=== PATIENT | female | born 1975 | race Caucasian/White ===

== ENCOUNTER 2023-08-09 09:55 | Emergency (ER) | payer OTHER, SELFPAY ==
[2023-08-09 10:05] VITALS: BP 173/86; PULSE 83; RESP 15; TEMP 36.4; O2SAT 100; BMI 22.6
--- NOTE | 2023-08-09 10:08 | DI.RAD.S_ITS ---
PROCEDURE: XR SHOULDER RT MIN 2V INDICATIONS: shoulder pain TECHNIQUE: 3 views of the shoulder were acquired. COMPARISON: None. FINDINGS: Bones: No fractures or dislocations. No suspicious bony lesions. Visualized ribs appear intact. Soft tissues: No suspicious soft tissue calcifications. IMPRESSION: No acute osseous abnormality. If pain persists with conservative management, consider repeat x-ray in 10-14 days or cross-sectional imaging. Dictated by: Bandar Trujillo M.D. on 08/09/2023 at 10:55 Approved by: Bandar Trujillo M.D. on 08/09/2023 at 10:56
--- NOTE | 2023-08-09 11:11 | ED.EXTPRO ---
HPI - Extremity Problem General Chief complaint: Extremity Problem,Nontraumatic Stated complaint: sent from [facility] something wrong with rt arm Time Seen by Provider: 08/09/23 10:30 Source: patient Mode of arrival: Ambulatory History of Present Illness HPI Narrative: Patient here with father. Complains of right shoulder pain for the past couple of days. 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 She does carry a lot of heavy trays. However in the last couple of days she also moved a very heavy massage table in and out of the car. This has made her shoulder pain worse. No prior history of shoulder injury or surgery. No numbness or tingling. Increased pain with any movement of the right shoulder. No recent illness or fever. She does not want any narcotic medication Related Data Home Medications Medication Instructions Recorded Confirmed loratadine 10 mg tablet (Allergy 10 mg PO DAILY 08/10/23 08/10/23 Relief (loratadine)) Previous Rx's Medication Instructions Recorded baclofen 20 mg tablet 20 mg PO TID PRN pain (scale score 08/09/23 4-6) #20 tabs ibuprofen 800 mg tablet 800 mg PO Q8H PRN pain #20 tabs 08/09/23 Allergies Allergy/AdvReac Type Severity Reaction Status Date / Time No Known Drug Allergies Allergy Verified 08/10/23 14:11 Review of Systems Review of Systems Narrative: GENERAL: negative chills, fatigue, malaise, fever, sweats. HEENT: negative sinus pain, ear pain, sore throat RESPIRATORY: negative dyspnea, cough CARDIOVASCULAR: negative chest pain, palpitations GASTROINTESTINAL: negative nausea, vomiting, abdominal pain : negative dysuria, frequency, hematuria MUSCULOSKELETAL: Positive muscle or bony pain SKIN: negative rash, skin lesions NEUROLOGIC: negative weakness, numbness ROS Unobtainable: All systems reviewed & are unremarkable except as noted in HPI and below Patient History Social History Smoking Status: Current some day smoker Smoking Status: Current some day smoker alcohol intake frequency: 0-2 drinks per day Substance Use Type: marijuana Exam Narrative Exam Narrative: GENERAL: in no distress, not toxic not dyspneic HEAD: Normocephalic. EYES: Pupils equal round ENT: Mucous membranes moist. NECK: Trachea midline. EXTREMITIES: No gross deformities. Right shoulder 2 fingers exposed. Nontender elbow and wrist. Very limited range of motion of the right shoulder due to pain. Increased pain with forward flexion forward extension external rotation internal rotation attempt to abduct to 90? is painful and not obtainable. Unable to bring her right hand above her shoulder level. And increased pain with bringing hand behind the back. Light touch intact to deltoid and fingertips. Strong sliver cutter and radial pulse. Hand and arm warm soft and pink with brisk cap refills NEURO: AOx4. SKIN: Warm and dry PSYCH: Not anxious, is cooperative Initial Vital Signs Initial Vital Signs: Vital Signs Temperature 97.6 F 08/09/23 10:05 Pulse Rate 83 08/09/23 10:05 Respiratory Rate 15 08/09/23 10:05 Blood Pressure 173/86 H 08/09/23 10:05 Pulse Oximetry 100 08/09/23 10:05 Oxygen Delivery Method Room Air 08/09/23 10:05 Course Orders Ordered: Discontinued Medications Baclofen (Baclofen 10 Mg Tablet) 10 mg PO NOW ONE Stop: 08/09/23 11:11 Last Admin: 08/09/23 11:22 Dose: 10 mg Documented By: RANJITH Ketorolac Tromethamine (Ketorolac 30 Mg/Ml Vial) 30 mg IV NOW ONE Stop: 08/09/23 11:11 Last Admin: 08/09/23 11:22 Dose: 30 mg Documented By: RANJITH Vital Signs Vital signs: Vital Signs - 8 hr 08/09/23 10:05 Temperature 97.6 F Pulse Rate 83 Respiratory Rate 15 Blood Pressure 173/86 H Pulse Oximetry 100 Oxygen Delivery Method Room Air [facility] - Extremity (Nontraumatic) [facility] Narrative Medical decision making narrative: Patient here with father. Complains of right shoulder pain for the past couple of days. 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 She does carry a lot of heavy trays. However in the last couple of days she also moved a very heavy massage table in and out of the car. This has made her shoulder pain worse. No prior history of shoulder injury or surgery. No numbness or tingling. Increased pain with any movement of the right shoulder. No recent illness or fever. She does not want any narcotic medication After history and exam x-ray right shoulder Toradol baclofen sling [facility] Medical records reviewed: No recent visit for this complaint Differential considered: Includes but not limited to rotator cuff injury shoulder strain sprain dislocation fracture Imaging studies independently reviewed: X-ray right shoulder no acute finding Consultations: None indicated at this time, referral given Treatments: Toradol baclofen sling Re-evaluations: Reviewed results with patient and father. They do agree with treatment plan. Referrals will be provided for orthopedics and primary care. Work note provided. She agrees with this plan. Pain is controlled. Discussion: Appropriate for discharge and outpatient MRI of the shoulder. Likely rotator cuff injury. Work note provided. Pain is controlled. Medications provided for patient. Does not want narcotic medication. Return precautions reviewed. She desires discharge home Diagnosis: Right shoulder strain Discharge Plan Departure Patient Disposition: Home Clinical Impression: Right shoulder strain Qualifiers: Encounter type: initial encounter Qualified Code(s): S46.911A - Strain of unspecified muscle, fascia and tendon at shoulder and upper arm level, right arm, initial encounter Instructions: DI for Shoulder Pain Activity Restrictions/Additional Instructions: Your shoulder pain/injury may require MRI study. This could be done outpatient. Please call provided orthopedic office as well as primary care office. Call today Call [phone] if you need a family doctor. Use provided sling for comfort. Work note has been provided for you. Prescription medication has been sent to your pharmacy to continue today. Return if worse if any questions or concerns Prescriptions: New ibuprofen 800 mg tablet 800 mg PO Q8H PRN (Reason: pain) Qty: 20 0RF baclofen 20 mg tablet 20 mg PO TID PRN (Reason: pain (scale score 4-6)) Qty: 20 0RF No Action loratadine [Allergy Relief (loratadine)] 10 mg tablet 10 mg PO DAILY Referrals: Concepcion Dempsey MD [Physician] - Miscellaneous,MD Seferino [Primary Care Provider] - Stand Alone Forms: Patient Portal/API, Work Release Note
[2023-08-09] MEDS: KETOROLAC 30 MG/ML VIAL IV (11:22)
[2023-08-09] MEDS: BACLOFEN 10 MG TABLET PO (11:22)
[2023-08-09 11:35] VITALS: BP 141/87; PULSE 82; O2SAT 100
== END 2023-08-09 11:44 | disposition home or self-care (01) ==
PROVIDERS: Emergency Provider Emergency Medicine
DX: S46.911A Strain of unspecified muscle, fascia and tendon at shoulder and upper arm level, right arm, initial encounter (principal); X50.0XXA Overexertion from strenuous movement or load, initial encounter
CPT/HCPCS: 73030; 96374; 99283; 99284; J1885

== ENCOUNTER → 2023-08-16 19:15 | Outpatient (CLI) | payer OTHER, SELFPAY ==
--- NOTE | 2023-08-16 19:16 | DI.MRI.S_ITS ---
PROCEDURE: MR SHOULDER RT WO CON INDICATIONS: Weakness, decreased ROM, significant pain TECHNIQUE: Noncontrast oblique coronal T2 fast spin echo with fat saturation, oblique sagittal T1 spin echo and T2 fast spin echo with fat saturation, axial T1 spin echo and T2 fast spin echo with fat saturation through the shoulder. COMPARISON: [facility], CR, XR SHOULDER RT MIN 2V, 08/09/2023, 10:31. FINDINGS: Image quality: Somewhat limited evaluation given artifact about the posterior shoulder. Rotator cuff: In the supraspinatus, there is low-grade, partial width, interstitial tear at the footprint, extending into the critical zone. The infraspinatus is unremarkable. The teres minor is unremarkable. The subscapularis is grossly unremarkable. No fatty atrophy or muscle edema. Bones and bursae: Moderate degenerative changes at the acromioclavicular joint. Type 1 acromion. No os acromiale. Mild subacromial bursitis. No focal chondral defect. No acute fracture. Capsule and soft tissues: Labral degeneration, without tear. The extra-articular biceps tendon is unremarkable. The intra-articular biceps tendon is unremarkable as well. No significant glenohumeral effusion. IMPRESSION: 1. Somewhat limited evaluation given associated artifact about the posterior shoulder. 2. Low-grade tear of the supraspinatus. 3. Moderate degenerative changes of the acromioclavicular joint. Dictated by: Cris Pena M.D. on 08/17/2023 at 18:12 Approved by: Cris Pena M.D. on 08/17/2023 at 18:23
== END ==
LOC: MRI 19:15
PROVIDERS: PCP Family Medicine; Referring Provider Family Medicine; Visit Provider Family Medicine
DX: S46.011A Strain of muscle(s) and tendon(s) of the rotator cuff of right shoulder, initial encounter (principal); R29.898 Other symptoms and signs involving the musculoskeletal system; X58.XXXA Exposure to other specified factors, initial encounter
CPT/HCPCS: 73221

== ENCOUNTER 2023-10-24 10:30 | Outpatient (RCR) | payer OTHER, SELFPAY ==
--- NOTE | 2023-09-06 10:11 | PT.OIE ---
Current Diagnoses Unspecified rotator cuff tear or rupture of right shoulder, not specified as traumatic (09/06/23) Visit Care Team Role Provider Type Sylvia Barney DO Attending Provider Physician Family Provider Primary Care Provider Referring Provider Specialty: Family Practice Address: [address] [place] [address], [address], [address] Email: [email or web address] Physical Therapy Initial Evaluation PT-OP-A Visit Information Start: 09/06/23 08:16 Freq: Status: Active Protocol: Document 09/06/23 09:02 MB (Rec: 09/06/23 09:28 MB [id number]) Out-Patient Physical Therapy Visit Information Visit Information Visit Type Initial Evaluation Visit Start Time 09:02 Visit Stop Time 09:42 Visit Number 1 Number of MOLECULAR BIOLOGY PROFESSOR Visits 0 Evaluation Information Evaluation Date 09/06/23 Precautions Precautions Right supraspinatus tear PT-OP-B Current Condition Start: 09/06/23 08:16 Freq: Status: Active Protocol: Document 09/06/23 09:02 MB (Rec: 09/06/23 09:28 MB [id number]) Current Condition History of Current Condition Onset Date 08/10/23 Current Complaints Right sided ache and shoulder pain with movement History of Current Condition 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 She is right handed. On 08/10/23, she was lifting her massage table into her trunk and felt shoulder pain. She had increased pain and frozen shoulder type symptoms. She had trouble sleeping. MRI on the revealed changes below. Pt has been unable to do any massage therapy work since 08/10/23. She was typically seeing two clients a week. 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 She is managing work but it is a little painful. Sleeping now is going better. She is sleeping on her left side. She is doing an ice pack on her time off and she is careful on her days off. She wears a sling occ. Plan is to try PT first for 4-6 weeks and light lifting at work and then consider orthopedic referral. Pt reports tingling in rhomboid area into trap and collar bone and dorsal and palmar sides of right hand. Pt has baclofen and 800 mg of ibuprofen. She takes an allergy pill. She is a sometimes smoker. Pt has grinding and grounding. Prior Treatments and Tests Right shoulder MRI 08/16/23: IMPRESSION: 1. Somewhat limited evaluation given associated artifact about the posterior shoulder. 2. Low-grade tear of the supraspinatus. 3. Moderate degenerative changes of the acromioclavicular joint. Treatment Goals Patient/Caregiver Goals Goal for PT is too restore full mobility and pt motions overhead ER, IR and reaching out to the right side. PT-OP-C Subjective Start: 09/06/23 08:16 Freq: Status: Active Protocol: Document 09/06/23 09:02 MB (Rec: 09/06/23 09:28 MB [id number]) OP-PT Subjective Patient Comments Patient Comments See history of current condition above. Patient Questionnaires Quick Dash- Upper Extremity Quick Dash UE Score 35 Quick Dash UE Impairment 40 to 59% Impaired (Score 40- 59) PT-OP-J Posture/Palpation/Skin Start: 09/06/23 08:16 Freq: Status: Active Protocol: Document 09/06/23 09:02 MB (Rec: 09/06/23 09:28 MB [id number]) Posture Evaluation Comments Posture Comments Standing posture in socks: right shoulder is slightly higher than the left, decreased thoracic kyphosis, right iliac crest mildly higher than the left, PT-OP-K Range of Motion Start: 09/06/23 08:16 Freq: Status: Active Protocol: Document 09/06/23 09:02 MB (Rec: 09/06/23 10:11 MB [id number]) Cervical Spine Range of Motion Cervical Spine Active Testing Position Standing Comments WNLs Shoulder Goniometric Range of Motion Shoulder Left Shoulder ROM WFL Yes Testing Position Standing Flexion 162 Abduction 171 Internal Rotation Behind Back (text) T7 Comments Supine passive ROM in 90/90: ER and IR normal Right Shoulder ROM WFL No Testing Position Standing Flexion 118 Abduction 98 Internal Rotation Behind Back (text) L5-S1 Comments Supine passive ROM in 90/90: ER and IR normal and similar to L shoulder PT-OP-M Strength Start: 09/06/23 08:16 Freq: Status: Active Protocol: Document 09/06/23 09:02 MB (Rec: 09/06/23 10:11 MB [id number]) Shoulder Strength Shoulder Manual Muscle Testing Left Flexion 5 Normal Abduction (C5) 5 Normal External Rotation 4 Good Internal Rotation 4+ Good+ Right Comments PT does not MMT pt d/t painful and limited ROM and strength is no more than 2+/5 with functional ROM in standing Elbow/Forearm Strength Elbow and Forearm Manual Muscle Testing Left Flexion (C6) 5 Normal Extension (C7) 5 Normal Right Comments Deferred today d/t pain PT-OP-Q Treatments Start: 09/06/23 08:16 Freq: Status: Active Protocol: Document 09/06/23 09:02 MB (Rec: 09/06/23 10:11 MB [id number]) Therapeutic Exercises Supine Exercises Cane AAROM Side right Equipment Used Straight cane Comments 3 reps of flexion and 3 reps of abduction Standing Exercises Racquet ball STM and MWM Side right Comments Intrascapular and infraspinatus STM, MWM with cervical rotation with traps Manual Therapy Treatment Other Other Manual Treatments Pt supine with head supported: STM right upper traps and infraspinatus and right first rib isometric Self-Care/Home Management Treatment Education Patient Education Home Exercise Program,Joint Protection,Pain Management, Posture Other Education Ed pt on benefits of icing PT-OP-T Assessment and Plan Start: 09/06/23 08:16 Freq: Status: Active Protocol: Document 09/06/23 09:02 MB (Rec: 09/06/23 10:11 MB [id number]) Physical Therapy Assessment Rehab Potential Rehabilitation Potential Good Evaluation Complexity Number of Personal Factors/Comorbidities 1-2 Number of Body Systems Impaired 1-2 Clinical Presentation at Evaluation Evolving Impairments Impairments Activity Tolerance, Coordination,Functional Activities,Pain,Posture,ROM, Sensation,Soft Tissue Mobility ,Strength Goals 4 Impairment Right shoulder weakness Half-Way Goal (LTG) If AROM restored, pt will present with improved right shoulder flexion and abduction strength to at least 4/5 to improve function. LTG Duration 8 weeks 3 Impairment Lack of HEP Solar Business Developer Goal (LTG) Pt will perform progressive flexibility, range, and strengthening HEP exercises with I to improve range, function and strength. LTG Duration 8 weeks 2 Impairment Decreased right shoulder ROM Solar Business Developer Goal (LTG) Pt will present with improved right shoulder AROM flexion and abduction equal to the left to improve functional use of arm. LTG Duration 8 weeks 1 Impairment QuickDash score reflects 54.54 % impairment Half-Way Goal (LTG) Pt will present with a QuickDASH score reflecting no more than 10% impairment to improve quality of life. 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 MRI revealed low-grade tear of supraspinatus. Pt reports plan is to try therapy for several weeks and the refer to orthopedist if needed. She will benefit from PT for progressive flexibility, range and strengthening work as well as manual interventions. Physical Therapy Plan Frequency and Duration Frequency of Treatment 1-2x/wk Duration of treatment (weeks) 8 Plan of Care Start Date 09/06/23 Plan of Care End Date 11/06/23 Therapeutic Interventions Therapeutic Interventions Balance Training,Canalithic Repositioning,Coordination Training,Home Exercise Program ,Joint Mobilizations,Manual Therapy,Neuromuscular Re- education,Patient/Caregiver Education,Self-Care/Home Management,Soft Tissue Mobilization,Taping, Therapeutic Activities, Therapeutic Exercises Modalities Cold Pack/Ice Massage,Electric Stimulation,Hot Packs, Ultrasound Next Visit Focus/Plan Next Note Type Treatment Note Next Visit Plan Review HEP, consider arm bike, consider further manual work, consider taping
--- NOTE | 2023-09-06 10:11 | PT.OPPOC ---
Physical, Occupational & Speech Therapy At [facility] Current Diagnoses Unspecified rotator cuff tear or rupture of right shoulder, not specified as traumatic (09/06/23) Visit Care Team Role Provider Type Sylvia Barney DO Attending Provider Physician Family Provider Primary Care Provider Referring Provider Specialty: Family Practice Address: [address] [place] [address], [address], [facility] Email: [email or web address] Plan Of Care PT-OP-T Assessment and Plan Start: 09/06/23 08:16 Freq: Status: Active Protocol: Document 09/06/23 09:02 MB (Rec: 09/06/23 10:11 MB [id number]) Physical Therapy Assessment Rehab Potential Rehabilitation Potential Good Evaluation Complexity Number of Personal Factors/Comorbidities 1-2 Number of Body Systems Impaired 1-2 Clinical Presentation at Evaluation Evolving Impairments Impairments Activity Tolerance, Coordination,Functional Activities,Pain,Posture,ROM, Sensation,Soft Tissue Mobility ,Strength Goals 4 Impairment Right shoulder weakness Fci Goal (LTG) If AROM restored, pt will present with improved right shoulder flexion and abduction strength to at least 4/5 to improve function. LTG Duration 8 weeks 3 Impairment Lack of HEP Treater Goal (LTG) Pt will perform progressive flexibility, range, and strengthening HEP exercises with I to improve range, function and strength. LTG Duration 8 weeks 2 Impairment Decreased right shoulder ROM Treater Goal (LTG) Pt will present with improved right shoulder AROM flexion and abduction equal to the left to improve functional use of arm. LTG Duration 8 weeks 1 Impairment QuickDash score reflects 54.54 % impairment Treater Goal (LTG) Pt will present with a QuickDASH score reflecting no more than 10% impairment to improve quality of life. 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 MRI revealed low-grade tear of supraspinatus. Pt reports plan is to try therapy for several weeks and the refer to orthopedist if needed. She will benefit from PT for progressive flexibility, range and strengthening work as well as manual interventions. Physical Therapy Plan Frequency and Duration Frequency of Treatment 1-2x/wk Duration of treatment (weeks) 8 Plan of Care Start Date 09/06/23 Plan of Care End Date 11/06/23 Therapeutic Interventions Therapeutic Interventions Balance Training,Canalithic Repositioning,Coordination Training,Home Exercise Program ,Joint Mobilizations,Manual Therapy,Neuromuscular Re- education,Patient/Caregiver Education,Self-Care/Home Management,Soft Tissue Mobilization,Taping, Therapeutic Activities, Therapeutic Exercises Modalities Cold Pack/Ice Massage,Electric Stimulation,Hot Packs, Ultrasound Next Visit Focus/Plan Next Note Type Treatment Note Next Visit Plan Review HEP, consider arm bike, consider further manual work, consider taping Plan of Care Dates Plan of Care Start Date 09/06/23 Plan of Care End Date 11/06/23 Electronically Signed by: Tata Shetty, PT 09/06/23 1011 If you are in agreement with this Plan of Care, please return a signed and dated copy. I have reviewed this Plan of Care and certify that the skilled therapy services above are required to meet the patient?s needs. Physician Signature Date Printed Name and Credentials Clinical Instructor Signature Printed Name and Credentials
--- NOTE | 2023-09-13 09:48 | PT.OTN ---
Current Diagnoses Unspecified rotator cuff tear or rupture of right shoulder, not specified as traumatic (09/13/23) Physical Therapy Treatment Note PT-OP-A Visit Information Start: 09/06/23 08:16 Freq: Status: Active Protocol: Document 09/13/23 09:06 MB (Rec: 09/13/23 09:48 MB [id number]) Out-Patient Physical Therapy Visit Information Visit Information Visit Type Treatment Note Visit Note Pt's is 6' late to appointment Visit Start Time 09:06 Visit Stop Time 09:45 Visit Number 2 Number of BUTT MAKER Visits 0 Precautions Precautions Right supraspinatus tear PT-OP-B Current Condition Start: 09/06/23 08:16 Freq: Status: Active Protocol: Document 09/06/23 09:02 MB (Rec: 09/06/23 09:28 MB [id number]) Current Condition History of Current Condition Onset Date 08/10/23 Current Complaints Right sided ache and shoulder pain with movement History of Current Condition 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 On 08/10/23, she was lifting her massage table into her trunk and felt shoulder pain. She had increased pain and frozen shoulder type symptoms. She had trouble sleeping. MRI on the revealed changes below. Pt has been unable to do any massage therapy work since 08/10/23. She was typically seeing two clients a week. 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 She is managing work but it is a little painful. Sleeping now is going better. She is sleeping on her left side. She is doing an ice pack on her time off and she is careful on her days off. She wears a sling occ. Plan is to try PT first for 4-6 weeks and light lifting at work and then consider orthopedic referral. Pt reports tingling in rhomboid area into trap and collar bone and dorsal and palmar sides of right hand. Pt has baclofen and 800 mg of ibuprofen. She takes an allergy pill. She is a sometimes smoker. Pt has grinding and grounding. Prior Treatments and Tests Right shoulder MRI 08/16/23: IMPRESSION: 1. Somewhat limited evaluation given associated artifact about the posterior shoulder. 2. Low-grade tear of the supraspinatus. 3. Moderate degenerative changes of the acromioclavicular joint. Treatment Goals Patient/Caregiver Goals Goal for PT is too restore full mobility and pt motions overhead ER, IR and reaching out to the right side. PT-OP-C Subjective Start: 09/06/23 08:16 Freq: Status: Active Protocol: Document 09/13/23 09:06 MB (Rec: 09/13/23 09:48 MB [id number]) OP-PT Subjective Patient Comments Patient Comments Pt was a little sore after PT eval and with work. PT-OP-J Posture/Palpation/Skin Start: 09/06/23 08:16 Freq: Status: Active Protocol: Document 09/06/23 09:02 MB (Rec: 09/06/23 09:28 MB [id number]) Posture Evaluation Comments Posture Comments Standing posture in socks: right shoulder is slightly higher than the left, decreased thoracic kyphosis, right iliac crest mildly higher than the left, PT-OP-K Range of Motion Start: 09/06/23 08:16 Freq: Status: Active Protocol: Document 09/06/23 09:02 MB (Rec: 09/06/23 10:11 MB [id number]) Cervical Spine Range of Motion Cervical Spine Active Testing Position Standing Comments WNLs Shoulder Goniometric Range of Motion Shoulder Left Shoulder ROM WFL Yes Testing Position Standing Flexion 162 Abduction 171 Internal Rotation Behind Back (text) T7 Comments Supine passive ROM in 90/90: ER and IR normal Right Shoulder ROM WFL No Testing Position Standing Flexion 118 Abduction 98 Internal Rotation Behind Back (text) L5-S1 Comments Supine passive ROM in 90/90: ER and IR normal and similar to L shoulder PT-OP-M Strength Start: 09/06/23 08:16 Freq: Status: Active Protocol: Document 09/06/23 09:02 MB (Rec: 09/06/23 10:11 MB [id number]) Shoulder Strength Shoulder Manual Muscle Testing Left Flexion 5 Normal Abduction (C5) 5 Normal External Rotation 4 Good Internal Rotation 4+ Good+ Right Comments PT does not MMT pt d/t painful and limited ROM and strength is no more than 2+/5 with functional ROM in standing Elbow/Forearm Strength Elbow and Forearm Manual Muscle Testing Left Flexion (C6) 5 Normal Extension (C7) 5 Normal Right Comments Deferred today d/t pain PT-OP-Q Treatments Start: 09/06/23 08:16 Freq: Status: Active Protocol: Document 09/13/23 09:06 MB (Rec: 05/08/24 09:48 MB [id number]) Therapeutic Exercises Supine Exercises Foam roller exercise Supine Exercise Name Lying on foam roller vertically and then horizontal mobs, vertical rest Comments 6 foam roller, tried AAROM with left hand and cane but too much for pt Sitting Exercises [place] exercise Comments Gentle AAROM flexion and scaption Manual Therapy Treatment Other Other Manual Treatments Two piece black KT: I strip over AC joint and then I strip from anterior clavicular area around shoulder to scapula, right shoulder Neuro Re-Education Treatment Movement Re-Education Movement Re-education Activities Initiated nasal breathing training today, discussion about parasympathetic nervous system PT-OP-T Assessment and Plan Start: 09/06/23 08:16 Freq: Status: Active Protocol: Document 09/13/23 09:06 MB (Rec: 09/13/23 09:48 [id number]) Physical Therapy Assessment Rehab Potential Rehabilitation Potential Good Evaluation Complexity Number of Personal Factors/Comorbidities 1-2 Number of Body Systems Impaired 1-2 Clinical Presentation at Evaluation Evolving Impairments Impairments Activity Tolerance, Coordination,Functional Activities,Pain,Posture,ROM, Sensation,Soft Tissue Mobility ,Strength Goals 4 Impairment Right shoulder weakness Brasswind Instrument Repairer Goal (LTG) If AROM restored, pt will present with improved right shoulder flexion and abduction strength to at least 4/5 to improve function. LTG Duration 8 weeks 3 Impairment Lack of HEP Brasswind Instrument Repairer Goal (LTG) Pt will perform progressive flexibility, range, and strengthening HEP exercises with I to improve range, function and strength. LTG Duration 8 weeks 2 Impairment Decreased right shoulder ROM Alf Goal (LTG) Pt will present with improved right shoulder AROM flexion and abduction equal to the left to improve functional use of arm. LTG Duration 8 weeks 1 Impairment QuickDash score reflects 54.54 % impairment Alf Goal (LTG) Pt will present with a QuickDASH score reflecting no more than 10% impairment to improve quality of life. LTG Duration 8 weeks Assessment Summary Assessment Pt is very fearful about movement and guards. [place] and breathing are helpful today and so added for HEP as well thoracic mobility and taping. Consider Buteyko breathing in the future to help regain breathing and to encourage parasympathetic nervous system. Physical Therapy Plan Frequency and Duration Frequency of Treatment 1-2x/wk Duration of treatment (weeks) 8 Plan of Care Start Date 09/06/23 Plan of Care End Date 11/06/23 Therapeutic Interventions Therapeutic Interventions Balance Training,Canalithic Repositioning,Coordination Training,Home Exercise Program ,Joint Mobilizations,Manual Therapy,Neuromuscular Re- education,Patient/Caregiver Education,Self-Care/Home Management,Soft Tissue Mobilization,Taping, Therapeutic Activities, Therapeutic Exercises Modalities Cold Pack/Ice Massage,Electric Stimulation,Hot Packs, Ultrasound Next Visit Focus/Plan Next Note Type Treatment Note Next Visit Plan Review HEP, in future, consider arm bike, consider further manual work, consider further taping once assessed, consider Buteyko breathing
--- NOTE | 2023-09-20 08:33 | PT.OTN ---
Current Diagnoses Unspecified rotator cuff tear or rupture of right shoulder, not specified as traumatic (09/20/23) Physical Therapy Treatment Note PT-OP-A Visit Information Start: 09/06/23 08:16 Freq: Status: Active Protocol: Document 09/20/23 07:33 MB (Rec: 09/20/23 08:28 [id number]) Out-Patient Physical Therapy Visit Information Visit Information Visit Type Treatment Note Visit Note Pt's is 3' late to appointment Visit Start Time 07:33 Visit Stop Time 08:26 Visit Number 3 Number of TAX ASSOCIATE ATTORNEY Visits 0 Precautions Precautions Right supraspinatus tear PT-OP-B Current Condition Start: 09/06/23 08:16 Freq: Status: Active Protocol: Document 09/06/23 09:02 MB (Rec: 09/06/23 09:28 MB [id number]) Current Condition History of Current Condition Onset Date 08/10/23 Current Complaints Right sided ache and shoulder pain with movement History of Current Condition 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 On 08/10/23, she was lifting her massage table into her trunk and felt shoulder pain. She had increased pain and frozen shoulder type symptoms. She had trouble sleeping. MRI on the revealed changes below. Pt has been unable to do any massage therapy work since 08/10/23. She was typically seeing two clients a week. 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 She is managing work but it is a little painful. Sleeping now is going better. She is sleeping on her left side. She is doing an ice pack on her time off and she is careful on her days off. She wears a sling occ. Plan is to try PT first for 4-6 weeks and light lifting at work and then consider orthopedic referral. Pt reports tingling in rhomboid area into trap and collar bone and dorsal and palmar sides of right hand. Pt has baclofen and 800 mg of ibuprofen. She takes an allergy pill. She is a sometimes smoker. Pt has grinding and grounding. Prior Treatments and Tests Right shoulder MRI 08/16/23: IMPRESSION: 1. Somewhat limited evaluation given associated artifact about the posterior shoulder. 2. Low-grade tear of the supraspinatus. 3. Moderate degenerative changes of the acromioclavicular joint. Treatment Goals Patient/Caregiver Goals Goal for PT is too restore full mobility and pt motions overhead ER, IR and reaching out to the right side. 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 She has not yet gotten cami. PT-OP-J Posture/Palpation/Skin Start: 09/06/23 08:16 Freq: Status: Active Protocol: Document 09/06/23 09:02 MB (Rec: 09/06/23 09:28 MB [id number]) Posture Evaluation Comments Posture Comments Standing posture in socks: right shoulder is slightly higher than the left, decreased thoracic kyphosis, right iliac crest mildly higher than the left, PT-OP-K Range of Motion Start: 09/06/23 08:16 Freq: Status: Active Protocol: Document 09/06/23 09:02 MB (Rec: 09/06/23 10:11 MB [id number]) Cervical Spine Range of Motion Cervical Spine Active Testing Position Standing Comments WNLs Shoulder Goniometric Range of Motion Shoulder Left Shoulder ROM WFL Yes Testing Position Standing Flexion 162 Abduction 171 Internal Rotation Behind Back (text) T7 Comments Supine passive ROM in 90/90: ER and IR normal Right Shoulder ROM WFL No Testing Position Standing Flexion 118 Abduction 98 Internal Rotation Behind Back (text) L5-S1 Comments Supine passive ROM in 90/90: ER and IR normal and similar to L shoulder PT-OP-M Strength Start: 09/06/23 08:16 Freq: Status: Active Protocol: Document 09/06/23 09:02 MB (Rec: 09/06/23 10:11 MB [id number]) Shoulder Strength Shoulder Manual Muscle Testing Left Flexion 5 Normal Abduction (C5) 5 Normal External Rotation 4 Good Internal Rotation 4+ Good+ Right Comments PT does not MMT pt d/t painful and limited ROM and strength is no more than 2+/5 with functional ROM in standing Elbow/Forearm Strength Elbow and Forearm Manual Muscle Testing Left Flexion (C6) 5 Normal Extension (C7) 5 Normal Right Comments Deferred today d/t pain PT-OP-Q Treatments Start: 09/06/23 08:16 Freq: Status: Active Protocol: Document 09/20/23 07:33 MB (Rec: 09/20/23 08:28 MB [id number]) Therapeutic Exercises Supine Exercises Buteyko breathing Comments Ed in exercise and see assessment for reps Sitting Exercises [place] exercise Comments Gentle AAROM flexion and scaption Standing Exercises Theracane upper traps work Comments TrP pressure and then MWM tipping head away Manual Therapy Treatment Other Other Manual Treatments Two piece black KT: I strip over AC joint and then I strip from anterior clavicular area around shoulder to scapula, right shoulder Neuro Re-Education Treatment Movement Re-Education Movement Re-education Activities Diaphragm breathing with Buteyko breathing to improve parasympathetic response and relaxation PT-OP-T Assessment and Plan Start: 09/06/23 08:16 Freq: Status: Active Protocol: Document 09/20/23 07:33 MB (Rec: 09/20/23 08:28 MB [id number]) Physical Therapy Assessment Rehab Potential Rehabilitation Potential Good Evaluation Complexity Number of Personal Factors/Comorbidities 1-2 Number of Body Systems Impaired 1-2 Clinical Presentation at Evaluation Evolving Impairments Impairments Activity Tolerance, Coordination,Functional Activities,Pain,Posture,ROM, Sensation,Soft Tissue Mobility ,Strength Goals 4 Impairment Right shoulder weakness Correction Goal (LTG) If AROM restored, pt will present with improved right shoulder flexion and abduction strength to at least 4/5 to improve function. LTG Duration 8 weeks 3 Impairment Lack of HEP Tank Pumper Panelboard Goal (LTG) Pt will perform progressive flexibility, range, and strengthening HEP exercises with I to improve range, function and strength. LTG Duration 8 weeks 2 Impairment Decreased right shoulder ROM Correction Goal (LTG) Pt will present with improved right shoulder AROM flexion and abduction equal to the left to improve functional use of arm. LTG Duration 8 weeks 1 Impairment QuickDash score reflects 54.54 % impairment Tank Pumper Panelboard Goal (LTG) Pt will present with a QuickDASH score reflecting no more than 10% impairment to improve quality of life. LTG Duration 8 weeks Assessment Summary Assessment Pt supine and HR and O2 sats at rest before exercises are: 96-104 BPM and O2 sats 98-99%. Pt with diaphragm movement after several breaths. Pt supine with head and neck supported and book on abdomen for cues: 1st rep: 10 sec and PT cues pt to inhale. HR 93 BPM and sats 99%; 2nd rep: 23 sec and O2 sats and HR not reading well d/t all digits cold. Sats 96% and HR 89-90 BPM. Pt may also have changes from asthma and smoking in the past. HR 85-88 BPM while resting and nasal breating. 3rd rep: 33 sec and sats decrease and unsure of pulse ox reading, HR 89 BPM. 4th rep : 27 sec hold and sats mid 90s and HR 94 BPM. HR 83-85 BPM during nasal breathing. 5th rep: 35 sec, sats 97% and HR 90 BPM. HR 81 BPM with nasal breathing between 5th and 6th rep. 6th rep: 39 sec and 87-93 % and 89-90 BPM. Pt does a good job with nasal breathing and controlled pause today and her HRV improves with activity. Pt with increased relaxation after exercise. Overall, HR is in the low 80s with nasal breathing and higher 90s and lower 100s with not doing nasal breathing. Physical Therapy Plan Frequency and Duration Frequency of Treatment 1-2x/wk Duration of treatment (weeks) 8 Plan of Care Start Date 09/06/23 Plan of Care End Date 11/06/23 Therapeutic Interventions Therapeutic Interventions Balance Training,Canalithic Repositioning,Coordination Training,Home Exercise Program ,Joint Mobilizations,Manual Therapy,Neuromuscular Re- education,Patient/Caregiver Education,Self-Care/Home Management,Soft Tissue Mobilization,Taping, Therapeutic Activities, Therapeutic Exercises Modalities Cold Pack/Ice Massage,Electric Stimulation,Hot Packs, Ultrasound Next Visit Focus/Plan Next Note Type Treatment Note Next Visit Plan Review HEP, in future, consider arm bike, consider further manual work, consider gentle exercise progression over foam roller, assess isometrics and hook lying pect stretch
--- NOTE | 2023-09-27 12:07 | PT.OTN ---
Current Diagnoses Unspecified rotator cuff tear or rupture of right shoulder, not specified as traumatic (09/27/23) Physical Therapy Treatment Note PT-OP-A Visit Information Start: 09/06/23 08:16 Freq: Status: Active Protocol: Document 09/27/23 11:25 MB (Rec: 09/27/23 12:07 MB [id number]) Out-Patient Physical Therapy Visit Information Visit Information Visit Type Treatment Note Visit Note Pt's is 10' late to appointment Visit Start Time 11:25 Visit Stop Time 12:05 Visit Number 4 Number of COORDINATING PRODUCER Visits 0 Evaluation Information Evaluation Date 09/06/23 Precautions Precautions Right supraspinatus tear PT-OP-B Current Condition Start: 09/06/23 08:16 Freq: Status: Active Protocol: Document 09/06/23 09:02 MB (Rec: 09/06/23 09:28 MB [id number]) Current Condition History of Current Condition Onset Date 08/10/23 Current Complaints Right sided ache and shoulder pain with movement History of Current Condition 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 On 08/10/23, she was lifting her massage table into her trunk and felt shoulder pain. She had increased pain and frozen shoulder type symptoms. She had trouble sleeping. MRI on the revealed changes below. Pt has been unable to do any massage therapy work since 08/10/23. She was typically seeing two clients a week. 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 She is managing work but it is a little painful. Sleeping now is going better. She is sleeping on her left side. She is doing an ice pack on her time off and she is careful on her days off. She wears a sling occ. Plan is to try PT first for 4-6 weeks and light lifting at work and then consider orthopedic referral. Pt reports tingling in rhomboid area into trap and collar bone and dorsal and palmar sides of right hand. Pt has baclofen and 800 mg of ibuprofen. She takes an allergy pill. She is a sometimes smoker. Pt has grinding and grounding. Prior Treatments and Tests Right shoulder MRI 08/16/23: IMPRESSION: 1. Somewhat limited evaluation given associated artifact about the posterior shoulder. 2. Low-grade tear of the supraspinatus. 3. Moderate degenerative changes of the acromioclavicular joint. Treatment Goals Patient/Caregiver Goals Goal for PT is too restore full mobility and pt motions overhead ER, IR and reaching out to the right side. PT-OP-C Subjective Start: 09/06/23 08:16 Freq: Status: Active Protocol: Document 09/27/23 11:25 MB (Rec: 09/27/23 12:07 MB [id number]) OP-PT Subjective Patient Comments Patient Comments Pt had some good moments and some gnarly moments over the past week. She did try the breathing exercises and she likes it. She is having more anxiety and pre-menopausal type symptoms. PT-OP-J Posture/Palpation/Skin Start: 09/06/23 08:16 Freq: Status: Active Protocol: Document 09/06/23 09:02 MB (Rec: 09/06/23 09:28 MB [id number]) Posture Evaluation Comments Posture Comments Standing posture in socks: right shoulder is slightly higher than the left, decreased thoracic kyphosis, right iliac crest mildly higher than the left, PT-OP-K Range of Motion Start: 09/06/23 08:16 Freq: Status: Active Protocol: Document 09/06/23 09:02 MB (Rec: 09/06/23 10:11 MB [id number]) Cervical Spine Range of Motion Cervical Spine Active Testing Position Standing Comments WNLs Shoulder Goniometric Range of Motion Shoulder Left Shoulder ROM WFL Yes Testing Position Standing Flexion 162 Abduction 171 Internal Rotation Behind Back (text) T7 Comments Supine passive ROM in 90/90: ER and IR normal Right Shoulder ROM WFL No Testing Position Standing Flexion 118 Abduction 98 Internal Rotation Behind Back (text) L5-S1 Comments Supine passive ROM in 90/90: ER and IR normal and similar to L shoulder PT-OP-M Strength Start: 09/06/23 08:16 Freq: Status: Active Protocol: Document 09/06/23 09:02 MB (Rec: 09/06/23 10:11 MB [id number]) Shoulder Strength Shoulder Manual Muscle Testing Left Flexion 5 Normal Abduction (C5) 5 Normal External Rotation 4 Good Internal Rotation 4+ Good+ Right Comments PT does not MMT pt d/t painful and limited ROM and strength is no more than 2+/5 with functional ROM in standing Elbow/Forearm Strength Elbow and Forearm Manual Muscle Testing Left Flexion (C6) 5 Normal Extension (C7) 5 Normal Right Comments Deferred today d/t pain PT-OP-Q Treatments Start: 09/06/23 08:16 Freq: Status: Active Protocol: Document 09/27/23 11:25 MB (Rec: 09/27/23 12:07 MB [id number]) Therapeutic Exercises Supine Exercises Foam roller exercise Supine Exercise Name Lying on foam roller vertically and then horizontal mobs, pect stretch Resistance Level 1 TB Equipment Used 6 foam roller Comments Gentle ER with TB, several reps Sitting Exercises [place] exercise Comments Gentle AAROM flexion and scaption Manual Therapy Treatment Other Other Manual Treatments Pt hook lying with head and legs supported: right first rib mob, STM B upper traps, gentle cervical PA mobs, rib positional release, right middle scalene and right pect major STM PT-OP-T Assessment and Plan Start: 09/06/23 08:16 Freq: Status: Active Protocol: Document 09/27/23 11:25 MB (Rec: 09/27/23 12:07 [id number]) Physical Therapy Assessment Rehab Potential Rehabilitation Potential Good Evaluation Complexity Number of Personal Factors/Comorbidities 1-2 Number of Body Systems Impaired 1-2 Clinical Presentation at Evaluation Evolving Impairments Impairments Activity Tolerance, Coordination,Functional Activities,Pain,Posture,ROM, Sensation,Soft Tissue Mobility ,Strength Goals 4 Impairment Right shoulder weakness Radon Inspector Goal (LTG) If AROM restored, pt will present with improved right shoulder flexion and abduction strength to at least 4/5 to improve function. LTG Duration 8 weeks 3 Impairment Lack of HEP Radon Inspector Goal (LTG) Pt will perform progressive flexibility, range, and strengthening HEP exercises with I to improve range, function and strength. LTG Duration 8 weeks 2 Impairment Decreased right shoulder ROM Radon Inspector Goal (LTG) Pt will present with improved right shoulder AROM flexion and abduction equal to the left to improve functional use of arm. LTG Duration 8 weeks 1 Impairment QuickDash score reflects 54.54 % impairment Radon Inspector Goal (LTG) Pt will present with a QuickDASH score reflecting no more than 10% impairment to improve quality of life. LTG Duration 8 weeks Assessment Summary Assessment Pt's pulleys have still not arrived. Added gentle ER with level 1 TB today. Manual work was helpful. Physical Therapy Plan Frequency and Duration Frequency of Treatment 1-2x/wk Duration of treatment (weeks) 8 Plan of Care Start Date 09/06/23 Plan of Care End Date 11/06/23 Therapeutic Interventions Therapeutic Interventions Balance Training,Canalithic Repositioning,Coordination Training,Home Exercise Program ,Joint Mobilizations,Manual Therapy,Neuromuscular Re- education,Patient/Caregiver Education,Self-Care/Home Management,Soft Tissue Mobilization,Taping, Therapeutic Activities, Therapeutic Exercises Modalities Cold Pack/Ice Massage,Electric Stimulation,Hot Packs, Ultrasound Next Visit Focus/Plan Next Note Type Treatment Note Next Visit Plan In future, consider arm bike, consider further manual work, consider gentle exercise progression over foam roller
--- NOTE | 2023-10-04 13:45 | PT.OTN ---
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 On 08/10/23, she was lifting her massage table into her trunk and felt shoulder pain. She had increased pain and frozen shoulder type symptoms. She had trouble sleeping. MRI on the revealed changes below. Pt has been unable to do any massage therapy work since 08/10/23. She was typically seeing two clients a week. 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 She is managing work but it is a little painful. Sleeping now is going better. She is sleeping on her left side. She is doing an ice pack on her time off and she is careful on her days off. She wears a sling occ. Plan is to try PT first for 4-6 weeks and light lifting at work and then consider orthopedic referral. Pt reports tingling in rhomboid area into trap and collar bone and dorsal and palmar sides of right hand. Pt has baclofen and 800 mg of ibuprofen. She takes an allergy pill. She is a sometimes smoker. Pt has grinding and grounding. Prior Treatments and Tests Right shoulder MRI 08/16/23: IMPRESSION: 1. Somewhat limited evaluation given associated artifact about the posterior shoulder. 2. Low-grade tear of the supraspinatus. 3. Moderate degenerative changes of the acromioclavicular joint. Treatment Goals Patient/Caregiver Goals Goal for PT is too restore full mobility and pt motions overhead ER, IR and reaching out to the right side. PT-OP-C Subjective Start: 09/06/23 08:16 Freq: Status: Active Protocol: Document 10/04/23 13:02 MB (Rec: 10/04/23 13:45 MB [id number]) OP-PT Subjective Patient Comments Patient Comments [place] the weekend for 7 days. Since starting PT, pt is still bending over to put on shirt. Reaching far behind her back is still difficult (to scratch an itch near bra strap) and reaching far up and ahead is also difficult. Wing span is better as long as thumbs are pointed up. Lying con't to cause throbbing and this is a little better. She got her pulleys. Her upper traps is still tight. Patient Questionnaires Quick Dash- Upper Extremity Quick Dash UE Score 29 Quick Dash UE Impairment 40 to 59% Impaired (Score 40- 59) PT-OP-J Posture/Palpation/Skin Start: 09/06/23 08:16 Freq: Status: Active Protocol: Document 09/06/23 09:02 MB (Rec: 09/06/23 09:28 MB [id number]) Posture Evaluation Comments Posture Comments Standing posture in socks: right shoulder is slightly higher than the left, decreased thoracic kyphosis, right iliac crest mildly higher than the left, PT-OP-K Range of Motion Start: 09/06/23 08:16 Freq: Status: Active Protocol: Document 09/06/23 09:02 MB (Rec: 09/06/23 10:11 MB [id number]) Cervical Spine Range of Motion Cervical Spine Active Testing Position Standing Comments WNLs Shoulder Goniometric Range of Motion Shoulder Left Shoulder ROM WFL Yes Testing Position Standing Flexion 162 Abduction 171 Internal Rotation Behind Back (text) T7 Comments Supine passive ROM in 90/90: ER and IR normal Right Shoulder ROM WFL No Testing Position Standing Flexion 118 Abduction 98 Internal Rotation Behind Back (text) L5-S1 Comments Supine passive ROM in 90/90: ER and IR normal and similar to L shoulder PT-OP-M Strength Start: 09/06/23 08:16 Freq: Status: Active Protocol: Document 09/06/23 09:02 MB (Rec: 09/06/23 10:11 MB [id number]) Shoulder Strength Shoulder Manual Muscle Testing Left Flexion 5 Normal Abduction (C5) 5 Normal External Rotation 4 Good Internal Rotation 4+ Good+ Right Comments PT does not MMT pt d/t painful and limited ROM and strength is no more than 2+/5 with functional ROM in standing Elbow/Forearm Strength Elbow and Forearm Manual Muscle Testing Left Flexion (C6) 5 Normal Extension (C7) 5 Normal Right Comments Deferred today d/t pain PT-OP-Q Treatments Start: 09/06/23 08:16 Freq: Status: Active Protocol: Document 10/04/23 13:02 MB (Rec: 10/04/23 13:45 MB [id number]) Therapeutic Exercises Sitting Exercises [place] exercise Comments Gentle AAROM flexion and scaption Standing Exercises AROM standing Comments See numbers below in assessment Other Exercises HEP review in progress note Comments Performed verbal and partial demo review today for HEP on progress note Manual Therapy Treatment Other Other Manual Treatments Two piece black KT: I strip over AC joint and then I strip from anterior clavicular area around shoulder to scapula, right shoulder Pt hook lying with head and legs supported and B first rib isometrics, positional release B upper traps, grade III PA cervical mobs PT-OP-T Assessment and Plan Start: 09/06/23 08:16 Freq: Status: Active Protocol: Document 10/04/23 13:02 MB (Rec: 10/04/23 13:45 MB [id number]) Physical Therapy Assessment Rehab Potential Rehabilitation Potential Good Evaluation Complexity Number of Personal Factors/Comorbidities 1-2 Number of Body Systems Impaired 1-2 Clinical Presentation at Evaluation Evolving Impairments Impairments Activity Tolerance, Coordination,Functional Activities,Pain,Posture,ROM, Sensation,Soft Tissue Mobility ,Strength Goals 4 Impairment Right shoulder weakness Halfway Goal (LTG) If AROM restored, pt will present with improved right shoulder flexion and abduction strength to at least 4/5 to improve function. 10/04/23: Deferred MMT given ongoing range and pain issues in known situation of supraspinatus tear LTG Duration 8 weeks 3 Impairment Lack of HEP Academic Coach Goal (LTG) Pt will perform progressive flexibility, range, and strengthening HEP exercises with I to improve range, function and strength. 10/04/23: Pt is performing cane exercises, foam roller exercises, pulleys and blue theraband ER LTG Duration 8 weeks 2 Impairment Decreased right shoulder ROM Halfway Goal (LTG) Pt will present with improved right shoulder AROM flexion and abduction equal to the left to improve functional use of arm. 10/04/23: AROM standing: shoulder flexion: 145 deg right and 163 deg left; abduction: 135 deg right and 170 deg left; IR left T6 and right T12 LTG Duration 8 weeks 1 Impairment QuickDash score reflects 54.54 % impairment Halfway Goal (LTG) Pt will present with a QuickDASH score reflecting no more than 10% impairment to improve quality of life. 10/04/23: 40.91% impairment, a 14% improvement since assessment LTG Duration 8 weeks Assessment Summary Assessment Pt has only had 3 actual treatments since eval and then today is a progress note. Her QuickDASH score is 14% better . 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 Talked with pt about getting orthopedic surgeon referral and she is agreeable to this. Will con't with PT. Her right upper traps con't to guard and this may con't with supraspinatus injury. Pt's AROM is better and she reports arm fatigue and shaking on her right side with increased working time. Physical Therapy Plan Frequency and Duration Frequency of Treatment 1-2x/wk Duration of treatment (weeks) 8 Plan of Care Start Date 10/04/23 Plan of Care End Date 12/04/23 Therapeutic Interventions Therapeutic Interventions Balance Training,Canalithic Repositioning,Coordination Training,Home Exercise Program ,Joint Mobilizations,Manual Therapy,Neuromuscular Re- education,Patient/Caregiver Education,Self-Care/Home Management,Soft Tissue Mobilization,Taping, Therapeutic Activities, Therapeutic Exercises Modalities Cold Pack/Ice Massage,Electric Stimulation,Hot Packs, Ultrasound Next Visit Focus/Plan Next Note Type Treatment Note Next Visit Plan In future, consider arm bike, consider further manual work, consider gentle exercise progression over foam roller
--- NOTE | 2023-10-04 13:45 | PT.OPPOC ---
Physical, Occupational & Speech Therapy At [facility] Current Diagnoses Unspecified rotator cuff tear or rupture of right shoulder, not specified as traumatic (10/04/23) Visit Care Team Role Provider Type Sylvia Barney DO Attending Provider Physician Family Provider Primary Care Provider Referring Provider Specialty: Family Practice Address: [address] [place] [address], [address], [facility] Email: [email or web address] Plan Of Care PT-OP-T Assessment and Plan Start: 09/06/23 08:16 Freq: Status: Active Protocol: Document 10/04/23 13:02 MB (Rec: 10/04/23 13:45 MB [id number]) Physical Therapy Assessment Rehab Potential Rehabilitation Potential Good Evaluation Complexity Number of Personal Factors/Comorbidities 1-2 Number of Body Systems Impaired 1-2 Clinical Presentation at Evaluation Evolving Impairments Impairments Activity Tolerance, Coordination,Functional Activities,Pain,Posture,ROM, Sensation,Soft Tissue Mobility ,Strength Goals 4 Impairment Right shoulder weakness Mcc Goal (LTG) If AROM restored, pt will present with improved right shoulder flexion and abduction strength to at least 4/5 to improve function. 10/04/23: Deferred MMT given ongoing range and pain issues in known situation of supraspinatus tear LTG Duration 8 weeks 3 Impairment Lack of HEP Coverer Goal (LTG) Pt will perform progressive flexibility, range, and strengthening HEP exercises with I to improve range, function and strength. 10/04/23: Pt is performing cane exercises, foam roller exercises, pulleys and blue theraband ER LTG Duration 8 weeks 2 Impairment Decreased right shoulder ROM Coverer Goal (LTG) Pt will present with improved right shoulder AROM flexion and abduction equal to the left to improve functional use of arm. 10/04/23: AROM standing: shoulder flexion: 145 deg right and 163 deg left; abduction: 135 deg right and 170 deg left; IR left T6 and right T12 LTG Duration 8 weeks 1 Impairment QuickDash score reflects 54.54 % impairment Mcc Goal (LTG) Pt will present with a QuickDASH score reflecting no more than 10% impairment to improve quality of life. 5/29/24: 40.91% impairment, a 14% improvement since assessment LTG Duration 8 weeks Assessment Summary Assessment Pt has only had 3 actual treatments since eval and then today is a progress note. Her QuickDASH score is 14% better . 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 Talked with pt about getting orthopedic surgeon referral and she is agreeable to this. Will con't with PT. Her right upper traps con't to guard and this may con't with supraspinatus injury. Pt's AROM is better and she reports arm fatigue and shaking on her right side with increased working time. Physical Therapy Plan Frequency and Duration Frequency of Treatment 1-2x/wk Duration of treatment (weeks) 8 Plan of Care Start Date 10/04/23 Plan of Care End Date 12/04/23 Therapeutic Interventions Therapeutic Interventions Balance Training,Canalithic Repositioning,Coordination Training,Home Exercise Program ,Joint Mobilizations,Manual Therapy,Neuromuscular Re- education,Patient/Caregiver Education,Self-Care/Home Management,Soft Tissue Mobilization,Taping, Therapeutic Activities, Therapeutic Exercises Modalities Cold Pack/Ice Massage,Electric Stimulation,Hot Packs, Ultrasound Next Visit Focus/Plan Next Note Type Treatment Note Next Visit Plan In future, consider arm bike, consider further manual work, consider gentle exercise progression over foam roller Plan of Care Dates Plan of Care Start Date 10/04/23 Plan of Care End Date 12/04/23 Electronically Signed by: Tata Shetty, PT 10/04/23 5027 If you are in agreement with this Plan of Care, please return a signed and dated copy. I have reviewed this Plan of Care and certify that the skilled therapy services above are required to meet the patient?s needs. Physician Signature Date Printed Name and Credentials Clinical Instructor Signature Printed Name and Credentials
--- NOTE | 2023-10-17 11:21 | PT.OTN ---
Current Diagnoses Unspecified rotator cuff tear or rupture of right shoulder, not specified as traumatic (10/17/23) Physical Therapy Treatment Note PT-OP-A Visit Information Start: 09/06/23 08:16 Freq: Status: Active Protocol: Document 10/17/23 10:37 MB (Rec: 10/17/23 11:20 MB [id number]) Out-Patient Physical Therapy Visit Information Visit Information Visit Type Treatment Note Visit Note Pt late to appointment Visit Start Time 10:37 Visit Stop Time 11:15 Visit Number 5 Number of SKIN TOGGLER Visits 0 Evaluation Information Evaluation Date 09/06/23 Precautions Precautions Right supraspinatus tear PT-OP-B Current Condition Start: 09/06/23 08:16 Freq: Status: Active Protocol: Document 09/06/23 09:02 MB (Rec: 09/06/23 09:28 MB [id number]) Current Condition History of Current Condition Onset Date 08/10/23 Current Complaints Right sided ache and shoulder pain with movement History of Current Condition 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 On 08/10/23, she was lifting her massage table into her trunk and felt shoulder pain. She had increased pain and frozen shoulder type symptoms. She had trouble sleeping. MRI on the revealed changes below. Pt has been unable to do any massage therapy work since 08/10/23. She was typically seeing two clients a week. 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 She is managing work but it is a little painful. Sleeping now is going better. She is sleeping on her left side. She is doing an ice pack on her time off and she is careful on her days off. She wears a sling occ. Plan is to try PT first for 4-6 weeks and light lifting at work and then consider orthopedic referral. Pt reports tingling in rhomboid area into trap and collar bone and dorsal and palmar sides of right hand. Pt has baclofen and 800 mg of ibuprofen. She takes an allergy pill. She is a sometimes smoker. Pt has grinding and grounding. Prior Treatments and Tests Right shoulder MRI 08/16/23: IMPRESSION: 1. Somewhat limited evaluation given associated artifact about the posterior shoulder. 2. Low-grade tear of the supraspinatus. 3. Moderate degenerative changes of the acromioclavicular joint. Treatment Goals Patient/Caregiver Goals Goal for PT is too restore full mobility and pt motions overhead ER, IR and reaching out to the right side. PT-OP-C Subjective Start: 09/06/23 08:16 Freq: Status: Active Protocol: Document 10/17/23 10:37 MB (Rec: 10/17/23 11:20 MB [id number]) OP-PT Subjective Patient Comments Patient Comments Pt had a great trip to [place]. She did not take pulleys. She did swim some. She could not do freestyle and did some easy breast stroke. She worked a double, got home at 0230 and then worked again. PT-OP-J Posture/Palpation/Skin Start: 09/06/23 08:16 Freq: Status: Active Protocol: Document 09/06/23 09:02 MB (Rec: 09/06/23 09:28 MB [id number]) Posture Evaluation Comments Posture Comments Standing posture in socks: right shoulder is slightly higher than the left, decreased thoracic kyphosis, right iliac crest mildly higher than the left, PT-OP-K Range of Motion Start: 09/06/23 08:16 Freq: Status: Active Protocol: Document 09/06/23 09:02 MB (Rec: 09/06/23 10:11 MB [id number]) Cervical Spine Range of Motion Cervical Spine Active Testing Position Standing Comments WNLs Shoulder Goniometric Range of Motion Shoulder Left Shoulder ROM WFL Yes Testing Position Standing Flexion 162 Abduction 171 Internal Rotation Behind Back (text) T7 Comments Supine passive ROM in 90/90: ER and IR normal Right Shoulder ROM WFL No Testing Position Standing Flexion 118 Abduction 98 Internal Rotation Behind Back (text) L5-S1 Comments Supine passive ROM in 90/90: ER and IR normal and similar to L shoulder PT-OP-M Strength Start: 09/06/23 08:16 Freq: Status: Active Protocol: Document 09/06/23 09:02 MB (Rec: 09/06/23 10:11 MB [id number]) Shoulder Strength Shoulder Manual Muscle Testing Left Flexion 5 Normal Abduction (C5) 5 Normal External Rotation 4 Good Internal Rotation 4+ Good+ Right Comments PT does not MMT pt d/t painful and limited ROM and strength is no more than 2+/5 with functional ROM in standing Elbow/Forearm Strength Elbow and Forearm Manual Muscle Testing Left Flexion (C6) 5 Normal Extension (C7) 5 Normal Right Comments Deferred today d/t pain PT-OP-Q Treatments Start: 09/06/23 08:16 Freq: Status: Active Protocol: Document 10/17/23 10:37 MB (Rec: 10/17/23 11:20 MB [id number]) Therapeutic Exercises Supine Exercises Foam roller exercise Supine Exercise Name Lying on foam roller vertically, pect stretch Resistance Level 2 TB Equipment Used 6 foam roller Comments Gentle ER with TB, horizontal abd several reps Sitting Exercises [place] exercise Comments Gentle AAROM flexion and scaption Manual Therapy Treatment Other Other Manual Treatments Pt supine with head and legs supported: first rib mobs, B pect, right greater than left STM, right upper traps and levator STM and ribs mobs PT-OP-T Assessment and Plan Start: 09/06/23 08:16 Freq: Status: Active Protocol: Document 10/17/23 10:37 MB (Rec: 10/17/23 11:20 MB [id number]) Physical Therapy Assessment Rehab Potential Rehabilitation Potential Good Evaluation Complexity Number of Personal Factors/Comorbidities 1-2 Number of Body Systems Impaired 1-2 Clinical Presentation at Evaluation Evolving Impairments Impairments Activity Tolerance, Coordination,Functional Activities,Pain,Posture,ROM, Sensation,Soft Tissue Mobility ,Strength Goals 4 Impairment Right shoulder weakness Yam Curer Goal (LTG) If AROM restored, pt will present with improved right shoulder flexion and abduction strength to at least 4/5 to improve function. 10/04/23: Deferred MMT given ongoing range and pain issues in known situation of supraspinatus tear LTG Duration 8 weeks 3 Impairment Lack of HEP Yam Curer Goal (LTG) Pt will perform progressive flexibility, range, and strengthening HEP exercises with I to improve range, function and strength. 10/04/23: Pt is performing cane exercises, foam roller exercises, pulleys and blue theraband ER LTG Duration 8 weeks 2 Impairment Decreased right shoulder ROM Assisted Goal (LTG) Pt will present with improved right shoulder AROM flexion and abduction equal to the left to improve functional use of arm. 10/04/23: AROM standing: shoulder flexion: 145 deg right and 163 deg left; abduction: 135 deg right and 170 deg left; IR left T6 and right T12 LTG Duration 8 weeks 1 Impairment QuickDash score reflects 54.54 % impairment Yam Curer Goal (LTG) Pt will present with a QuickDASH score reflecting no more than 10% impairment to improve quality of life. 10/04/23: 40.91% impairment, a 14% improvement since assessment LTG Duration 8 weeks Assessment Summary Assessment Pt is feeling pretty good after vacation. Gentle progression of scapular retraction strengthening over pool noodle today. Physical Therapy Plan Frequency and Duration Frequency of Treatment 1-2x/wk Duration of treatment (weeks) 8 Plan of Care Start Date 10/04/23 Plan of Care End Date 12/04/23 Therapeutic Interventions Therapeutic Interventions Balance Training,Canalithic Repositioning,Coordination Training,Home Exercise Program ,Joint Mobilizations,Manual Therapy,Neuromuscular Re- education,Patient/Caregiver Education,Self-Care/Home Management,Soft Tissue Mobilization,Taping, Therapeutic Activities, Therapeutic Exercises Modalities Cold Pack/Ice Massage,Electric Stimulation,Hot Packs, Ultrasound Next Visit Focus/Plan Next Note Type Treatment Note Next Visit Plan Similar: consider arm bike, consider further manual work, consider gentle exercise progression over foam roller
--- NOTE | 2023-10-24 11:13 | PT.OTN ---
Current Diagnoses Unspecified rotator cuff tear or rupture of right shoulder, not specified as traumatic (10/24/23) Physical Therapy Treatment Note PT-OP-A Visit Information Start: 09/06/23 08:16 Freq: Status: Active Protocol: Document 10/24/23 10:35 MB (Rec: 10/24/23 11:11 MB [id number]) Out-Patient Physical Therapy Visit Information Visit Information Visit Type Treatment Note Visit Note Pt is 5' late to appointment Visit Start Time 10:35 Visit Stop Time 11:15 Visit Number 6 Number of COMMERCIAL SALES CONSULTANT Visits 0 Evaluation Information Evaluation Date 09/06/23 Precautions Precautions Right supraspinatus tear PT-OP-B Current Condition Start: 09/06/23 08:16 Freq: Status: Active Protocol: Document 09/06/23 09:02 MB (Rec: 09/06/23 09:28 MB [id number]) Current Condition History of Current Condition Onset Date 08/10/23 Current Complaints Right sided ache and shoulder pain with movement History of Current Condition 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 She is right handed. On 08/10/23, she was lifting her massage table into her trunk and felt shoulder pain. She had increased pain and frozen shoulder type symptoms. She had trouble sleeping. MRI on the revealed changes below. Pt has been unable to do any massage therapy work since 08/10/23. She was typically seeing two clients a week. 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 She is managing work but it is a little painful. Sleeping now is going better. She is sleeping on her left side. She is doing an ice pack on her time off and she is careful on her days off. She wears a sling occ. Plan is to try PT first for 4-6 weeks and light lifting at work and then consider orthopedic referral. Pt reports tingling in rhomboid area into trap and collar bone and dorsal and palmar sides of right hand. Pt has baclofen and 800 mg of ibuprofen. She takes an allergy pill. She is a sometimes smoker. Pt has grinding and grounding. Prior Treatments and Tests Right shoulder MRI 08/16/23: IMPRESSION: 1. Somewhat limited evaluation given associated artifact about the posterior shoulder. 2. Low-grade tear of the supraspinatus. 3. Moderate degenerative changes of the acromioclavicular joint. Treatment Goals Patient/Caregiver Goals Goal for PT is too restore full mobility and pt motions overhead ER, IR and reaching out to the right side. PT-OP-C Subjective Start: 09/06/23 08:16 Freq: Status: Active Protocol: Document 10/24/23 10:35 MB (Rec: 10/24/23 11:11 MB [id number]) OP-PT Subjective Patient Comments Patient Comments Pt thinks her shoulder is feeling a little better. She worked very hard shifts this weekend. She is able to reach higher up on glass rack at the restaurant. She is at level 3 of the glass rack and there are 5 levels. PT-OP-J Posture/Palpation/Skin Start: 09/06/23 08:16 Freq: Status: Active Protocol: Document 09/06/23 09:02 MB (Rec: 09/06/23 09:28 MB [id number]) Posture Evaluation Comments Posture Comments Standing posture in socks: right shoulder is slightly higher than the left, decreased thoracic kyphosis, right iliac crest mildly higher than the left, PT-OP-K Range of Motion Start: 09/06/23 08:16 Freq: Status: Active Protocol: Document 09/06/23 09:02 MB (Rec: 09/06/23 10:11 MB [id number]) Cervical Spine Range of Motion Cervical Spine Active Testing Position Standing Comments WNLs Shoulder Goniometric Range of Motion Shoulder Left Shoulder ROM WFL Yes Testing Position Standing Flexion 162 Abduction 171 Internal Rotation Behind Back (text) T7 Comments Supine passive ROM in 90/90: ER and IR normal Right Shoulder ROM WFL No Testing Position Standing Flexion 118 Abduction 98 Internal Rotation Behind Back (text) L5-S1 Comments Supine passive ROM in 90/90: ER and IR normal and similar to L shoulder PT-OP-M Strength Start: 09/06/23 08:16 Freq: Status: Active Protocol: Document 09/06/23 09:02 MB (Rec: 09/06/23 10:11 MB [id number]) Shoulder Strength Shoulder Manual Muscle Testing Left Flexion 5 Normal Abduction (C5) 5 Normal External Rotation 4 Good Internal Rotation 4+ Good+ Right Comments PT does not MMT pt d/t painful and limited ROM and strength is no more than 2+/5 with functional ROM in standing Elbow/Forearm Strength Elbow and Forearm Manual Muscle Testing Left Flexion (C6) 5 Normal Extension (C7) 5 Normal Right Comments Deferred today d/t pain PT-OP-Q Treatments Start: 09/06/23 08:16 Freq: Status: Active Protocol: Document 10/24/23 10:35 MB (Rec: 10/24/23 11:11 MB [id number]) Therapeutic Exercises Sitting Exercises [place] exercise Sitting Exercise Name Added forward and backward bicycling today Comments Gentle AAROM flexion and scaption Standing Exercises Scapular retraction Resistance Green band Comments Elbows bent, 10 reps IR and ER with band Resistance Green band Comments Start hold onto band with arm in neutral and step away, then mild ER and IR Manual Therapy Treatment Other Other Manual Treatments Pt supine with head and legs supported: right pect, levator , ribs mobility and positional release, B upper traps, gentle cervical PA mobs PT-OP-T Assessment and Plan Start: 09/06/23 08:16 Freq: Status: Active Protocol: Document 10/24/23 10:35 MB (Rec: 10/24/23 11:11 MB [id number]) Physical Therapy Assessment Rehab Potential Rehabilitation Potential Good Evaluation Complexity Number of Personal Factors/Comorbidities 1-2 Number of Body Systems Impaired 1-2 Clinical Presentation at Evaluation Evolving Impairments Impairments Activity Tolerance, Coordination,Functional Activities,Pain,Posture,ROM, Sensation,Soft Tissue Mobility ,Strength Goals 4 Impairment Right shoulder weakness Laundry Attendant Goal (LTG) If AROM restored, pt will present with improved right shoulder flexion and abduction strength to at least 4/5 to improve function. 10/04/23: Deferred MMT given ongoing range and pain issues in known situation of supraspinatus tear LTG Duration 8 weeks 3 Impairment Lack of HEP Laundry Attendant Goal (LTG) Pt will perform progressive flexibility, range, and strengthening HEP exercises with I to improve range, function and strength. 10/04/23: Pt is performing cane exercises, foam roller exercises, pulleys and blue theraband ER LTG Duration 8 weeks 2 Impairment Decreased right shoulder ROM Longterm Goal (LTG) Pt will present with improved right shoulder AROM flexion and abduction equal to the left to improve functional use of arm. 10/04/23: AROM standing: shoulder flexion: 145 deg right and 163 deg left; abduction: 135 deg right and 170 deg left; IR left T6 and right T12 LTG Duration 8 weeks 1 Impairment QuickDash score reflects 54.54 % impairment Laundry Attendant Goal (LTG) Pt will present with a QuickDASH score reflecting no more than 10% impairment to improve quality of life. 10/04/23: 40.91% impairment, a 14% improvement since assessment LTG Duration 8 weeks Assessment Summary Assessment Gentle exercise progression today and manual work. Encouraged pt to follow-up with PCP about orthopedic referral and to con't PT through November. Physical Therapy Plan Frequency and Duration Frequency of Treatment 1-2x/wk Duration of treatment (weeks) 8 Plan of Care Start Date 10/04/23 Plan of Care End Date 12/04/23 Therapeutic Interventions Therapeutic Interventions Balance Training,Canalithic Repositioning,Coordination Training,Home Exercise Program ,Joint Mobilizations,Manual Therapy,Neuromuscular Re- education,Patient/Caregiver Education,Self-Care/Home Management,Soft Tissue Mobilization,Taping, Therapeutic Activities, Therapeutic Exercises Modalities Cold Pack/Ice Massage,Electric Stimulation,Hot Packs, Ultrasound Next Visit Focus/Plan Next Note Type Treatment Note Next Visit Plan Consider arm bike, gentle shoulder progression over foam roller and ongoing manual work
--- NOTE | 2023-11-01 13:31 | PT-OP ANOTE ---
Pt does not show for appointment. She has also had some cancellations and is frequently late to PT. 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 PT calls and leaves message about no show and cancellations and asks pt to call back. Hope to hear from pt. Currently, will keep next scheduled appointment for progress note that was going to be done today. If she cancels next appointment or is a no show, will d/c PT.
--- NOTE | 2023-11-15 12:10 | PT.OPDS ---
Current Diagnoses Unspecified rotator cuff tear or rupture of right shoulder, not specified as traumatic (10/24/23) Visit Care Team Role Provider Type Sylvia Barney DO Attending Provider Physician Family Provider Primary Care Provider Referring Provider Specialty: Family Practice Address: [address] [place] [address], [address], [place], [address] Email: 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 On 08/10/23, she was lifting her massage table into her trunk and felt shoulder pain. She had increased pain and frozen shoulder type symptoms. She had trouble sleeping. MRI on the revealed changes below. Pt has been unable to do any massage therapy work since 08/10/23. She was typically seeing two clients a week. 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 She is managing work but it is a little painful. Sleeping now is going better. She is sleeping on her left side. She is doing an ice pack on her time off and she is careful on her days off. She wears a sling occ. Plan is to try PT first for 4-6 weeks and light lifting at work and then consider orthopedic referral. Pt reports tingling in rhomboid area into trap and collar bone and dorsal and palmar sides of right hand. Pt has baclofen and 800 mg of ibuprofen. She takes an allergy pill. She is a sometimes smoker. Pt has grinding and grounding. Prior Treatments and Tests Right shoulder MRI 08/16/23: IMPRESSION: 1. Somewhat limited evaluation given associated artifact about the posterior shoulder. 2. Low-grade tear of the supraspinatus. 3. Moderate degenerative changes of the acromioclavicular joint. Treatment Goals Patient/Caregiver Goals Goal for PT is too restore full mobility and pt motions overhead ER, IR and reaching out to the right side. PT-OP-C Subjective Start: 09/06/23 08:16 Freq: Status: Active Protocol: Document 10/24/23 10:35 MB (Rec: 10/24/23 11:11 MB [id number]) OP-PT Subjective Patient Comments Patient Comments Pt thinks her shoulder is feeling a little better. She worked very hard shifts this weekend. She is able to reach higher up on glass rack at the restaurant. She is at level 3 of the glass rack and there are 5 levels. PT-OP-J Posture/Palpation/Skin Start: 09/06/23 08:16 Freq: Status: Active Protocol: Document 09/06/23 09:02 MB (Rec: 09/06/23 09:28 MB [id number]) Posture Evaluation Comments Posture Comments Standing posture in socks: right shoulder is slightly higher than the left, decreased thoracic kyphosis, right iliac crest mildly higher than the left, PT-OP-K Range of Motion Start: 09/06/23 08:16 Freq: Status: Active Protocol: Document 09/06/23 09:02 MB (Rec: 09/06/23 10:11 MB [id number]) Cervical Spine Range of Motion Cervical Spine Active Testing Position Standing Comments WNLs Shoulder Goniometric Range of Motion Shoulder Left Shoulder ROM WFL Yes Testing Position Standing Flexion 162 Abduction 171 Internal Rotation Behind Back (text) T7 Comments Supine passive ROM in 90/90: ER and IR normal Right Shoulder ROM WFL No Testing Position Standing Flexion 118 Abduction 98 Internal Rotation Behind Back (text) L5-S1 Comments Supine passive ROM in 90/90: ER and IR normal and similar to L shoulder PT-OP-M Strength Start: 09/06/23 08:16 Freq: Status: Active Protocol: Document 09/06/23 09:02 MB (Rec: 09/06/23 10:11 MB [id number]) Shoulder Strength Shoulder Manual Muscle Testing Left Flexion 5 Normal Abduction (C5) 5 Normal External Rotation 4 Good Internal Rotation 4+ Good+ Right Comments PT does not MMT pt d/t painful and limited ROM and strength is no more than 2+/5 with functional ROM in standing Elbow/Forearm Strength Elbow and Forearm Manual Muscle Testing Left Flexion (C6) 5 Normal Extension (C7) 5 Normal Right Comments Deferred today d/t pain PT-OP-T Assessment and Plan Start: 09/06/23 08:16 Freq: Status: Active Protocol: Document 11/15/23 12:09 MB (Rec: 11/15/23 12:10 MB [id number]) Physical Therapy Assessment Assessment Summary Assessment Kate webercels appointment same day. Left message for pt. Will d/c PT d/t last appointment was no show and pt has not been seen in 22 days and falling out of POC.
== END 2023-11-22 08:39 ==
LOC: PHYS 10:30
PROVIDERS: Family Provider Family Medicine; PCP Family Medicine; Referring Provider Family Medicine; Visit Provider Family Medicine
DX: M75.101 Unspecified rotator cuff tear or rupture of right shoulder, not specified as traumatic (principal)
CPT/HCPCS: 97110; 97112; 97140; 97161

== ENCOUNTER → 2024-01-11 10:54 | Outpatient (CLI) | payer OTHER, SELFPAY ==
[2024-01-11 12:11] LABS: Add Manual Diff / Slide Review NO; Basophils Absolute Auto 0 /uL (0-100); Basophils Percent Auto 0.5 % (0-2); Eosinophils Absolute Auto 200 /uL (0-450); Eosinophils Percent Auto 3.4 % (2-4); Hematocrit 37.6 % (36-46); Hemoglobin 12.9 g/dL (12.0-16.0); Lymphocytes Absolute Auto 900 /uL (1100-4500); Lymphocytes Percent Auto 19.1 % (25-40); Mean Corpuscular HGB Conc 34.4 % (30-36); Mean Corpuscular Hemoglobin 34.4 PG (26-34); Monocytes Absolute Auto 500 /uL (0-900); Monocytes Percent Auto 11.5 % (3-14); Neutrophils Absolute Auto 3100 /uL (1500-7000); Neutrophils Percent Auto 65.5 % (50-75); Platelet Count 331 X10^3/uL (150-400); Red Blood Cell Count 3.76 X10^6/uL (4.0-5.2); Red Cell Distribution Width 12.6 % (11.6-14.8); White Blood Cell Count 4.7 X10^3/uL (4.5-11.0)
[2024-01-11 12:33] LABS: Alanine Aminotransferase 36 IU/L (<35); Albumin 4.3 g/dL (3.5-5.0); Albumin Globulin Ratio 1.5 (1.0-2.8); Alkaline Phosphatase 98 U/L (38-126); Aspartate Aminotransferase 68 IU/L (14-36); BUN Creatinine Ratio 24.6 (6-22); Bilirubin Total 0.5 mg/dL (0.2-1.3); Blood Urea Nitrogen 14 mg/dL (7-17); Calcium 9.4 mg/dL (8.4-10.2); Carbon Dioxide 23 mmol/L (22-32); Chloride 100 mmol/L (98-107); Cholesterol 247 mg/dL (140-199); Estimated Glomerular Filt Rate > 60 mL/min (>60); Globulin 2.8 g/dL (1.7-4.1); Glucose 84 mg/dL (70-100); HEMOLYSIS < 15 (0-50); Potassium 4.2 mmol/L (3.4-5.1); Sodium 135 mmol/L (137-145); Total Protein 7.1 g/dL (6.3-8.2); Triglycerides 85 mg/dL (35-150)
[2024-01-11 12:46] LABS: HDL Cholesterol 146 mg/dL (40-60); LDL Cholesterol Calculated 84 mg/dL (<100)
[2024-01-11 13:01] LABS: TSH w/ Reflex to FT4 0.62 uIU/mL (0.47-4.68)
== END ==
PROVIDERS: Family Provider Family Medicine; PCP Family Medicine; Referring Provider Family Medicine; Visit Provider Family Medicine
DX: Z13.21 Encounter for screening for nutritional disorder (principal); Z00.00 Encounter for general adult medical examination without abnormal findings; Z13.220 Encounter for screening for lipoid disorders; M25.519 Pain in unspecified shoulder; M75.100 Unspecified rotator cuff tear or rupture of unspecified shoulder, not specified as traumatic; R25.1 Tremor, unspecified; E01.8 Other iodine-deficiency related thyroid disorders and allied conditions; N95.1 Menopausal and female climacteric states
CPT/HCPCS: 36415; 80053; 80061; 84443; 85025